=== PATIENT | female | born 1975 | race Caucasian/White ===

== ENCOUNTER → 2016-03-29 | Outpatient (CLI) | payer BC ==
[2016-03-29 16:54] LABS: MEAN CORPUSCULAR HEMOGLOBIN 27.1 pg (27.0-33.0); MEAN CORPUSCULAR HGB CONC 31.9 g/dl (32.0-36.5); MEAN CORPUSCULAR VOLUME 84.9 fl (80.0-96.0); RED CELL DISTRIBUTION WIDTH 12.8 % (11.5-14.5); WHITE BLOOD COUNT 7.6 K/mm3 (4.0-10.0)
[2016-03-29 17:13] LABS: ALBUMIN 3.7 GM/DL (3.2-5.2); ALBUMIN/GLOBULIN RATIO 1.16 (1.00-1.93); ALKALINE PHOSPHATASE 108 U/L (45-117); ALT/SGPT 47 U/L (12-78); ANION GAP 7 MEQ/L (8-16); AST/SGOT 33 U/L (15-37); BILIRUBIN,TOTAL 0.2 MG/DL (0.2-1.0); BLOOD UREA NITROGEN 11 MG/DL (7-18); CALCIUM LEVEL 8.6 MG/DL (8.5-10.1); CARBON DIOXIDE LEVEL 28 MEQ/L (21-32); CHLORIDE LEVEL 105 MEQ/L (98-107); CHOLESTEROL LEVEL 164 MG/DL (<200); CREATININE FOR GFR 0.83 MG/DL (0.55-1.02); FREE T4 0.88 NG/DL (0.76-1.46); GLOMERULAR FILTRATION RATE > 60.0 (>58); GLUCOSE, FASTING 97 MG/DL (70-105); POTASSIUM SERUM 4.2 MEQ/L (3.5-5.1); SODIUM LEVEL 140 MEQ/L (136-145); TOTAL PROTEIN 6.9 GM/DL (6.4-8.2); TRIGLYCERIDES LEVEL 74 MG/DL (<150)
== END ==
LOC: M LRY 11:11
PROVIDERS: ATTEND Internal Medicine Cardiovascular Disease
DX: R00.1 Bradycardia, unspecified (principal); R94.31 Abnormal electrocardiogram [ECG] [EKG]

== ENCOUNTER → 2016-04-14 | Outpatient (CLI) | payer BC ==
--- NOTE | 2016-04-14 23:15 | ECWPNPC ---
PATIENT NAME: PERRI ROSARIO : 1975 GENDER: FEMALE VISIT DATE: 04/14/2016 DISCHARGE DATE: 04/14/16 1034 VISIT LOCKED DATE TIME: PHYSICIAN: LINDSEY BROOKS RESOURCE: LINDSEY BROOKS REASON FOR APPOINTMENT 1. NECK HISTORY OF PRESENT ILLNESS HISTORY OF PRESENT ILLNESS: HERE FOR EVALUATION OF CHRONIC NECK AND RIGHT ARM PAIN.LAST VISIT WAS LISA 09/2015.REPORTS 2WK SIGNIFICANT IMPROVEMENT IN PAIN THEN PAIN RETURNED TO BASELINE.RATING PAIN VAS 7/10.DESCRIBES PAIN CONSTANT ACHING AND SORE.PAIN AGGEVATED BY USE OF RIGHT ARM.SOME IMPROVEMENT WITH HEAT AND RELAXATION.TRAMADOL IS INEFFECTIVE.SLEEP IS POOR DUE TO PAIN. PAIN THE PATIENT DESCRIBES THE PAIN... FALL RISK SCREENING: SCREENING :NO FALLS IN THE PAST YEAR CURRENT MEDICATIONS TAKING METHOCARBAMOL 750 MG TABLET 1 TABLET ORALLY EVERY 4 HRS, NOTES: 10/03/15 1000 TAKING ZYRTEC ALLERGY 10 MG TABLET 1 TABLET ORALLY ONCE A DAY TAKING SUDAFED 24 HOUR NON-DROWSY 240 MG TABLET EXTENDED RELEASE 24 HOUR 1 TABLET NEEDED ORALLY ONCE A DAY TAKING FLUTICASONE PROPIONATE 50 MCG/ACT SUSPENSION 1 SPRAY IN EACH NOSTRIL NASALLY BID, NOTES: MONTHS AGO TAKING ETODOLAC 300 MG CAPSULE 1 CAPSULE ORALLY TWICE A DAY TAKING NEURONTIN 600 MG TABLET 1 TABLET ORALLY TID AT MORNING AND NIGHT, NOTES: 10/03/15 1000 TAKING HYDROXYZINE HCL 50 MG TABLET 1 TABLET NEEDED ORALLY TID PRN, NOTES: 10/01/15 TAKING METOPROLOL SUCCINATE ER 25 MG TABLET EXTENDED RELEASE 24 HOUR 1 TABLET ORALLY BID NOT-TAKING DIFLUCAN 150 MG TABLET 1 TABLET ORALLY TAKE ONE TABLET NOW; REPEAT IN 72 HOURS IF SYMPTOMS PERSIST NOT-TAKING TRAMADOL HCL 50 MG TABLET 1 TABLET NEEDED ORALLY EVERY 6 HRS (MDD 4) NOT-TAKING BACTRIM DS 800-160 MG TABLET 1 TABLET ORALLY TWICE A DAY MEDICATION LIST REVIEWED AND RECONCILED WITH THE PATIENT PAST MEDICAL HISTORY RIGHT ANKLE PAIN CERVICALGIA LEFT KNEE PAIN RADICULOPATHY OF ARM LOW BACK PAIN RADIATING TO RIGHT LEG OBESITY (BMI 30-39.9) GERD (GASTROESOPHAGEAL REFLUX DISEASE) VITAMIN D INSUFFICIENCY ALLERGIES AUGMENTIN: FACIAL SWELLING (PT STATES ALLERGIC ONLY TO THE BINDER ASPECT OF AUGMENTIN): ALLERGY SOCIAL HISTORY GENERAL: TOBACCO USE ARE YOU A:NONSMOKER LEARNING BARRIERS / SPECIAL NEEDS ORIENTED TO PLAN OF CARE: PATIENT, PAIN MANAGEMENT PATIENT, ORIENTED TO PLAN OF CARE: PATIENT, PAIN MANAGEMENT PATIENT. NEW PATIENT PAIN DIARY TODAY'S VISITNOTES FROM 0-10, WHAT LEVEL IS YOUR PAIN TODAY?0 PAIN CLINIC PFS, CLERGY, PUBLIC HEALTH REFERRALS PFS REFERRAL NEEDED?NO CLERGY REFERRAL NEEDED?NO PUBLIC HEALTH REFERRAL NEEDED?NO WAS THE PROVIDER NOTIFIED OF ANY PERTINENT INFO?NO PFS REFERRAL NEEDED?NO CLERGY REFERRAL NEEDED?NO PUBLIC HEALTH REFERRAL NEEDED?NO WAS THE PROVIDER NOTIFIED OF ANY PERTINENT INFO?NO REVIEW OF SYSTEMS CONSTITUTIONAL: ANY CHANGE IN YOUR MEDICAL CONDITION? NO . CHILLS NO . FEVER NO . INFECTION: DO YOU HAVE NEW INFECTIONS? NO . DO YOU HAVE HISTORY OF MRSA? NO . MUSCULOSKELETAL: ANY NEW PATTERNS OF PAIN OR NUMBNESS? NO . GASTROENTEROLOGY: ANY NEW CHANGE IN BOWEL CONTROL? NO . GENITOURINARY: ANY NEW CHANGE IN BLADDER CONTROL? NO . IS THERE A CHANCE YOU COULD BE ? NO . HEMATOLOGY/LYMPH: DO YOU TAKE ANY BLOOD THINNERS? (FOR EXAMPLE- COUMADIN, PLAVIX, AGGRENOX, PLATEL, PRADAXA, OR XARELTO) NO . WHEN WAS YOUR LAST DOSE? DATE: TIME: . NEUROLOGY: HAVE YOU FALLEN IN THE PAST 6 MONTHS? NO . ANY NEW EXTREMITY NUMBNESS OR WEAKNESS? NO . CARDIOLOGY: DO YOU HAVE A PACEMAKER OR DEFIBRILLATOR? NO . RESPIRATORY: HAVE YOU BEEN SICK IN THE PAST WEEK? NO . FEVER NO . FLU LIKE SYMPTOMS? NO . COUGH NO . INTEGUMENTARY: DO YOU HAVE ANY RASHES OR OPEN SORES? NO . ALLERGIC/IMMUNO: ARE YOU ALLERGIC TO SHELLFISH OR IV DYE? NO . ANY NEW ALLERGIES? NO . PSYCHIATRIC: DO YOU HAVE THOUGHTS OF HURTING YOURSELF OR SOMEONE ELSE? NO . ARE YOU ABUSED, NEGLECTED, OR IN AN UNSAFE ENVIRONMENT? NO . ENDOCRINOLOGY: ARE YOU DIABETIC? NO . OTHER: DO YOU NEED ANY PRESCRIPTIONS? NO . IF YES, PLEASE LIST: ____ . ANY NEW PROBLEMS WITH YOUR MEDICATIONS? NO . WHEN DID YOU LAST EAT? ____ . WHEN DID YOU LAST DRINK? ____ . WHAT DID YOU LAST DRINK? ____ . NAME OF PERSON DRIVING YOU HOME? ____ . DO YOU HAVE ANY OTHER QUESTIONS OR CONCERNS NO . REVIEWED BY: PROVIDER: LINDSEY BERKOWITZ . VITAL SIGNS WT 256 LBS, HT 64.5 IN, BMI 43.26 INDEX, BP 155/95 L ARM, REPEAT BP 167/94 R ARM, HR 94 /MIN, RR 16 /MIN, TEMP 98.6 F, OXYGEN SAT % 98, NA INITIALS TL 1015ELEVATED BP, DATA MANAGEMENT ANALYST L.B. AWARE, PT STATES HER PRIMARY CARE DR IS AWARE WELL- TL. EXAMINATION GENERAL EXAMINATION: HEENT:HEAD:, NORMOCEPHALIC, EYES:, EYES NORMAL, NOSE:, NOSE CLEAR, THROAT: NORMAL. LUNGS:LUNG SOUNDS ARE CLEAR. HEART:HEART RATE REGULAR. ABDOMEN:SOFT AND NOT TENDER, NON-DISTENDED. MUSCULOSKELETAL:*. CERVICALPOSITIVE FOR PAIN WITH PALPATION OF CERVICAL SPINE. POSITIVE FOR PAIN WITH PALPATION OF CERVICAL PARASPINALS. POSITIVE FOR PAIN WITH PALPATION OF TRAPEZIUS BILAT. SKIN:NORMAL, NO RASH. NEUROLOGIC EXAM:ALERT AND ORIENTED X 3, DTRS 1-2+ IN ALL 4 EXTREMITIES, DENIES UPPER EXTREMETIES SENSORY LOSS, DENIES LOWER EXTREMETIES SENSORY LOSS. DIAGNOSTIC:[id number] REVIEWED NCS UPPER EXT. DONE 06-21-15-REVIEWED. ASSESSMENTS CERVICAL DISC DISORDER - M50.90 (PRIMARY) CERVICAL RADICULAR PAIN - M54.12 TREATMENT CERVICAL DISC DISORDER START NORCO TABLET, 5-325 MG, 1, ORALLY, EVERY 6 HRS PRN MDD4, 30 DAY(S), 45, REFILLS 0 CERVICAL EPIDURAL RIGHT PROCEDURE CODES FA211 ESTABILISHED PATIENT [facility] CHARGE DISPOSITION & COMMUNICATION FOLLOW UP 2WK POST (REASON: C5/6-C6/7 LISA) ELECTRONICALLY SIGNED BY WOO FINCH ON 04/14/2016 AT 11:02 AM EST DISCLAIMER : THIS IS A VISIT SUMMARY EXTRACTED FROM THE [employer] CHART. IT IS NOT A COPY OF THE [employer] PROGRESS NOTE. MTDD
== END ==
LOC: M PAIN 09:40
PROVIDERS: ATTEND Nurse Practitioner Family
DX: Z09 Encounter for follow-up examination after completed treatment for conditions other than malignant neoplasm (principal); G89.29 Other chronic pain; M50.90 Cervical disc disorder, unspecified, unspecified cervical region; M54.12 Radiculopathy, cervical region; K21.9 Gastro-esophageal reflux disease without esophagitis; E55.9 Vitamin D deficiency, unspecified; E66.9 Obesity, unspecified; Z68.41 Body mass index [BMI] 40.0-44.9, adult; Z88.1 Allergy status to other antibiotic agents; Z79.899 Other long term (current) drug therapy

== ENCOUNTER → 2016-06-01 | Outpatient (CLI) | payer BC ==
--- NOTE | 2016-06-02 00:34 | ECWPNPC ---
PATIENT NAME: PERRI ROSARIO : 1975 GENDER: FEMALE VISIT DATE: 06/01/2016 DISCHARGE DATE: 06/01/16 0952 VISIT LOCKED DATE TIME: PHYSICIAN: LINDSEY BROOKS RESOURCE: LINDSEY BROOKS REASON FOR APPOINTMENT 1. POST LISA HISTORY OF PRESENT ILLNESS HISTORY OF PRESENT ILLNESS: HERE FOR EVALUATION OF CHRONIC NECK AND RIGHT ARM PAIN.LAST VISIT WAS LISA 09/2015.REPORTS 2WK SIGNIFICANT IMPROVEMENT IN PAIN THEN PAIN RETURNED TO BASELINE.RATING PAIN VAS 7/10.DESCRIBES PAIN CONSTANT ACHING AND SORE.PAIN AGGEVATED BY USE OF RIGHT ARM.SOME IMPROVEMENT WITH HEAT AND RELAXATION.STARTED HYDROCODONE 5/325 AT LAST VISIT AND THIS HAS BEEN HELPFUL.SHE IS TAKING ONE TAB AT HS.MISSED LISA APT. DUE TO NERVES.FEELS SHE IS HAVING MORE RADIATION INTO RIGHT SKULL/NECK LATELY. PAIN THE PATIENT DESCRIBES THE PAIN... THE PATIENT DESCRIBES THE PAIN... FALL RISK SCREENING: SCREENING :NO FALLS IN THE PAST YEAR CURRENT MEDICATIONS TAKING METHOCARBAMOL 750 MG TABLET 1 TABLET ORALLY EVERY 4 HRS PRN TAKING ZYRTEC ALLERGY 10 MG TABLET 1 TABLET ORALLY ONCE A DAY TAKING SUDAFED 24 HOUR 240 MG TABLET EXTENDED RELEASE 24 HOUR 1 TABLET NEEDED ORALLY ONCE A DAY TAKING FLUTICASONE PROPIONATE 50 MCG/ACT SUSPENSION 1 SPRAY IN EACH NOSTRIL NASALLY BID PRN TAKING NEURONTIN 600 MG TABLET 1 TABLET ORALLY TID AT MORNING AND NIGHT TAKING HYDROXYZINE HCL 50 MG TABLET 1 TABLET NEEDED ORALLY TID PRN TAKING METOPROLOL SUCCINATE ER 25 MG TABLET EXTENDED RELEASE 24 HOUR 1 TABLET ORALLY BID TAKING NORCO 5-325 MG TABLET 1 ORALLY EVERY 6 HRS PRN MDD4 NOT-TAKING ETODOLAC 300 MG CAPSULE 1 CAPSULE ORALLY TWICE A DAY NOT-TAKING DIFLUCAN 150 MG TABLET 1 TABLET ORALLY TAKE ONE TABLET NOW; REPEAT IN 72 HOURS IF SYMPTOMS PERSIST NOT-TAKING TRAMADOL HCL 50 MG TABLET 1 TABLET NEEDED ORALLY EVERY 6 HRS (MDD 4) NOT-TAKING BACTRIM DS 800-160 MG TABLET 1 TABLET ORALLY TWICE A DAY MEDICATION LIST REVIEWED AND RECONCILED WITH THE PATIENT PAST MEDICAL HISTORY RIGHT ANKLE PAIN CERVICALGIA LEFT KNEE PAIN RADICULOPATHY OF ARM LOW BACK PAIN RADIATING TO RIGHT LEG OBESITY (BMI 30-39.9) GERD (GASTROESOPHAGEAL REFLUX DISEASE) VITAMIN D INSUFFICIENCY ALLERGIES AUGMENTIN: FACIAL SWELLING (PT STATES ALLERGIC ONLY TO THE BINDER ASPECT OF AUGMENTIN): ALLERGY SOCIAL HISTORY GENERAL: PAIN CLINIC PFS, CLERGY, PUBLIC HEALTH REFERRALS CLERGY REFERRAL NEEDED?NO WAS THE PROVIDER NOTIFIED OF ANY PERTINENT INFO?NO PFS REFERRAL NEEDED?NO PUBLIC HEALTH REFERRAL NEEDED?NO PATIENT: ____. REVIEW OF SYSTEMS CONSTITUTIONAL: ANY CHANGE IN YOUR MEDICAL CONDITION? NO . CHILLS NO . FEVER NO . INFECTION: DO YOU HAVE NEW INFECTIONS? NO . DO YOU HAVE HISTORY OF MRSA? NO . MUSCULOSKELETAL: ANY NEW PATTERNS OF PAIN OR NUMBNESS? YES, SHOOKING PAIN UP NECK INTO HEAD--OFF AND ON INCREASING IN FREQUENCY OVER THE PAST 3 WEEKS . GASTROENTEROLOGY: ANY NEW CHANGE IN BOWEL CONTROL? NO . GENITOURINARY: ANY NEW CHANGE IN BLADDER CONTROL? NO . IS THERE A CHANCE YOU COULD BE ? NO . HEMATOLOGY/LYMPH: DO YOU TAKE ANY BLOOD THINNERS? (FOR EXAMPLE- COUMADIN, PLAVIX, AGGRENOX, PLATEL, PRADAXA, OR XARELTO) NO . WHEN WAS YOUR LAST DOSE? DATE: TIME: . NEUROLOGY: HAVE YOU FALLEN IN THE PAST 6 MONTHS? NO . ANY NEW EXTREMITY NUMBNESS OR WEAKNESS? NO . CARDIOLOGY: DO YOU HAVE A PACEMAKER OR DEFIBRILLATOR? NO . RESPIRATORY: HAVE YOU BEEN SICK IN THE PAST WEEK? NO . FEVER NO . FLU LIKE SYMPTOMS? NO . COUGH NO . INTEGUMENTARY: DO YOU HAVE ANY RASHES OR OPEN SORES? NO . ALLERGIC/IMMUNO: ARE YOU ALLERGIC TO SHELLFISH OR IV DYE? NO . ANY NEW ALLERGIES? NO . PSYCHIATRIC: DO YOU HAVE THOUGHTS OF HURTING YOURSELF OR SOMEONE ELSE? NO . ARE YOU ABUSED, NEGLECTED, OR IN AN UNSAFE ENVIRONMENT? NO . ENDOCRINOLOGY: ARE YOU DIABETIC? NO . OTHER: DO YOU NEED ANY PRESCRIPTIONS? NO . IF YES, PLEASE LIST: ____ . ANY NEW PROBLEMS WITH YOUR MEDICATIONS? NO . WHEN DID YOU LAST EAT? ____ . WHEN DID YOU LAST DRINK? ____ . WHAT DID YOU LAST DRINK? ____ . NAME OF PERSON DRIVING YOU HOME? ____ . DO YOU HAVE ANY OTHER QUESTIONS OR CONCERNS NO . REVIEWED BY: PROVIDER: LINDSEY BERKOWITZ . VITAL SIGNS WT 257.4 LBS, HT 64.5 IN, BMI 43.50 INDEX, BP 134/90 MM HG, HR 109 /MIN, RR 16 /MIN, TEMP 98.9 F, OXYGEN SAT % 100, NA INITIALS AW 0851, REVIEWED BY: AD. EXAMINATION GENERAL EXAMINATION: HEENT:HEAD:, NORMOCEPHALIC, EYES:, EYES NORMAL, NOSE:, NOSE CLEAR, THROAT: NORMAL. LUNGS:LUNG SOUNDS ARE CLEAR. HEART:HEART RATE REGULAR. ABDOMEN:SOFT AND NOT TENDER, NON-DISTENDED. MUSCULOSKELETAL:*. CERVICALPOSITIVE FOR PAIN WITH PALPATION OF CERVICAL SPINE. POSITIVE FOR PAIN WITH PALPATION OF CERVICAL PARASPINALS. POSITIVE FOR PAIN WITH PALPATION OF TRAPEZIUS BILAT. SKIN:NORMAL, NO RASH. NEUROLOGIC EXAM:ALERT AND ORIENTED X 3, DTRS 1-2+ IN ALL 4 EXTREMITIES, DENIES UPPER EXTREMETIES SENSORY LOSS, DENIES LOWER EXTREMETIES SENSORY LOSS. DIAGNOSTIC:[id number] REVIEWED NCS UPPER EXT. DONE 06-21-15-REVIEWED. ASSESSMENTS CERVICAL DISC DISORDER - M50.90 (PRIMARY) CERVICAL RADICULAR PAIN - M54.12 TREATMENT CERVICAL DISC DISORDER REFILL NORCO TABLET, 5-325 MG, 1, ORALLY, EVERY 6 HRS PRN MDD4, 30 DAY(S), 45, REFILLS 0 START VALIUM TABLET, 10 MG, 1 TABLET NEEDED, ORALLY, 1 TAB 1/2 HR PRE ARRIVAL MDD1, 1 DOSE(S), 1, REFILLS 0 CERVICAL EPIDURAL LINDSEY GERMAIN 06/01/2016 9:31:03 AM > C4/5 LISA NOTES: OPTION FOR EPIDURAL INJECTIONS WERE DISCUSSED WITH THE PATIENT. FDA CONCERNS AND WARNING WERE REVIEWED INCLUDING THE RISK OF BLEEDING, RISK OF INFECTION, RISK OF INCREASED PAIN OR NEURALGIA, AND RISK OF PARALYSIS. PATIENT'S QUESTIONS WERE ANSWERED AND HE/SHE WISHES TO MOVE FORWARD WITH EPIDURAL INJECTION. [facility] REASON:C4/5 LARGE CENTRAL DISC HERNIATION W HT ARM RADICULOPATHY PREVENTIVE MEDICINE PAIN CLINIC TEACHING: MEDICATIONS PT DECLINED PRINTED INFORMATION ON VALIUM STSTING SHE WILL GET IT FROM THE PHARMACY. MEDICATION REVIEWED WITH PT AND SHE VERBALIZED UNDERSTANDING AD. PROCEDURE TEACHING PT. DECLINED PRINTED INFROMATION IN [place] STATING SHE HAS HAD IT BEFORE AND IS FAMILIAR WITH IT. PRE-PROCEDURE INSTRUCTIONS REVIEWED WITH PATIENT AND SHE VERBALIZED UNDERSTANDING. AD. PROCEDURE CODES FA211 ESTABILISHED PATIENT [facility] CHARGE DISPOSITION & COMMUNICATION FOLLOW UP 2WK POST (REASON: C4/5 LISA) ELECTRONICALLY SIGNED BY WOO FINCH ON 06/01/2016 AT 03:19 PM EDT DISCLAIMER : THIS IS A VISIT SUMMARY EXTRACTED FROM THE [employer] CHART. IT IS NOT A COPY OF THE [employer] PROGRESS NOTE. JUAN
== END ==
LOC: M PAIN 08:40
PROVIDERS: ATTEND Nurse Practitioner Family
DX: G89.29 Other chronic pain (principal); M50.121 Cervical disc disorder at C4-C5 level with radiculopathy; E66.9 Obesity, unspecified; K21.9 Gastro-esophageal reflux disease without esophagitis; E55.9 Vitamin D deficiency, unspecified; Z79.891 Long term (current) use of opiate analgesic; Z79.899 Other long term (current) drug therapy; Z88.8 Allergy status to other drugs, medicaments and biological substances; Z68.41 Body mass index [BMI] 40.0-44.9, adult

== ENCOUNTER → 2016-06-15 | Outpatient (CLI) | payer BC ==
[~2016-06-15] MED LIST: ISOVUE-M 300 61% 15ML VIAL (Q9967) As Ordered ONE; LIDOCAINE 1% SDV INJ 30 ML VIAL As Ordered ONE; methylPREDNISolone SUSP 40 MG/ML (DEPO-medrol) VIAL (J1030) As Ordered ONE
--- NOTE | 2016-06-15 18:20 | REP ---
FLUOROSCOPIC GUIDED SPINAL INJECTION: The films were reviewed with Dr. Nunez. The patient has a history of chronic neck and right arm pain. The portable C-ARM was provided in the OR by Dr. Story for fluoroscopic guidance. 2 intraoperative fluoroscopic spot films were obtained for needle placement verification for cervical epidural injection. The films are on the PACS system and are available for review. 15 seconds of fluoroscopic time was utilized for this procedure. Reviewed by CORNELL Reyes 06/16/2016 08:29 AEdited and Signed by Buddy Nunez MD 06/16/2016 05:08 P
--- NOTE | 2016-06-20 01:18 | ECWPNPC ---
PATIENT NAME: PERRI ROSARIO : 1975 GENDER: FEMALE VISIT DATE: 06/15/2016 DISCHARGE DATE: 06/15/16 1017 VISIT LOCKED DATE TIME: PHYSICIAN: JACKI BAUM RESOURCE: JACKI BAUM REASON FOR APPOINTMENT 1. LISA HISTORY OF PRESENT ILLNESS HISTORY OF PRESENT ILLNESS: PAIN THE PATIENT DESCRIBES THE PAIN... FALL RISK SCREENING: SCREENING :NO FALLS IN THE PAST YEAR CURRENT MEDICATIONS TAKING METHOCARBAMOL 750 MG TABLET 1 TABLET ORALLY EVERY 4 HRS PRN, NOTES: 06/14 11PM TAKING ZYRTEC ALLERGY 10 MG TABLET 1 TABLET ORALLY ONCE A DAY, NOTES: 3 DAYS TAKING SUDAFED 24 HOUR 240 MG TABLET EXTENDED RELEASE 24 HOUR 1 TABLET NEEDED ORALLY ONCE A DAY, NOTES: 1 WEEK TAKING FLUTICASONE PROPIONATE 50 MCG/ACT SUSPENSION 1 SPRAY IN EACH NOSTRIL NASALLY BID PRN, NOTES: 1 WEEK TAKING NEURONTIN 600 MG TABLET 1 TABLET ORALLY TID AT MORNING AND NIGHT, NOTES: 06/15 8AM TAKING HYDROXYZINE HCL 50 MG TABLET 1 TABLET NEEDED ORALLY TID PRN, NOTES: 2 DAYS AGO TAKING METOPROLOL SUCCINATE ER 25 MG TABLET EXTENDED RELEASE 24 HOUR 1 TABLET ORALLY BID, NOTES: 06/15 2AM TAKING NORCO 5-325 MG TABLET 1 ORALLY EVERY 6 HRS PRN MDD4, NOTES: 06/15 8AM TAKING VALIUM 10 MG TABLET 1 TABLET NEEDED ORALLY 1 TAB 1/2 HR PRE ARRIVAL MDD1, NOTES: 06/15 8AM NOT-TAKING ETODOLAC 300 MG CAPSULE 1 CAPSULE ORALLY TWICE A DAY NOT-TAKING DIFLUCAN 150 MG TABLET 1 TABLET ORALLY TAKE ONE TABLET NOW; REPEAT IN 72 HOURS IF SYMPTOMS PERSIST NOT-TAKING TRAMADOL HCL 50 MG TABLET 1 TABLET NEEDED ORALLY EVERY 6 HRS (MDD 4) NOT-TAKING BACTRIM DS 800-160 MG TABLET 1 TABLET ORALLY TWICE A DAY MEDICATION LIST REVIEWED AND RECONCILED WITH THE PATIENT PAST MEDICAL HISTORY RIGHT ANKLE PAIN CERVICALGIA LEFT KNEE PAIN RADICULOPATHY OF ARM LOW BACK PAIN RADIATING TO RIGHT LEG OBESITY (BMI 30-39.9) GERD (GASTROESOPHAGEAL REFLUX DISEASE) VITAMIN D INSUFFICIENCY ALLERGIES AUGMENTIN: FACIAL SWELLING (PT STATES ALLERGIC ONLY TO THE BINDER ASPECT OF AUGMENTIN): ALLERGY REVIEW OF SYSTEMS CONSTITUTIONAL: ANY CHANGE IN YOUR MEDICAL CONDITION? NO . CHILLS NO . FEVER NO . INFECTION: DO YOU HAVE NEW INFECTIONS? NO . DO YOU HAVE HISTORY OF MRSA? NO . MUSCULOSKELETAL: ANY NEW PATTERNS OF PAIN OR NUMBNESS? NO . GASTROENTEROLOGY: ANY NEW CHANGE IN BOWEL CONTROL? NO . GENITOURINARY: ANY NEW CHANGE IN BLADDER CONTROL? NO . IS THERE A CHANCE YOU COULD BE ? NO . HEMATOLOGY/LYMPH: DO YOU TAKE ANY BLOOD THINNERS? (FOR EXAMPLE- COUMADIN, PLAVIX, AGGRENOX, PLATEL, PRADAXA, OR XARELTO) NO . WHEN WAS YOUR LAST DOSE? DATE: TIME: . NEUROLOGY: HAVE YOU FALLEN IN THE PAST 6 MONTHS? NO . ANY NEW EXTREMITY NUMBNESS OR WEAKNESS? NO . CARDIOLOGY: DO YOU HAVE A PACEMAKER OR DEFIBRILLATOR? NO . RESPIRATORY: HAVE YOU BEEN SICK IN THE PAST WEEK? NO . FEVER NO . FLU LIKE SYMPTOMS? NO . COUGH NO . INTEGUMENTARY: DO YOU HAVE ANY RASHES OR OPEN SORES? NO . ALLERGIC/IMMUNO: ARE YOU ALLERGIC TO SHELLFISH OR IV DYE? NO . ANY NEW ALLERGIES? NO . PSYCHIATRIC: DO YOU HAVE THOUGHTS OF HURTING YOURSELF OR SOMEONE ELSE? NO . ARE YOU ABUSED, NEGLECTED, OR IN AN UNSAFE ENVIRONMENT? NO . ENDOCRINOLOGY: ARE YOU DIABETIC? NO . OTHER: DO YOU NEED ANY PRESCRIPTIONS? NO . IF YES, PLEASE LIST: ____ . ANY NEW PROBLEMS WITH YOUR MEDICATIONS? NO . WHEN DID YOU LAST EAT? 06/14 11PM . WHEN DID YOU LAST DRINK? 06/14 11PM . WHAT DID YOU LAST DRINK? WATER . NAME OF PERSON DRIVING YOU HOME? KILO ROSARIO . DO YOU HAVE ANY OTHER QUESTIONS OR CONCERNS NO . REVIEWED BY: PROVIDER: . VITAL SIGNS WT 257.4 LBS, HT 64.5 IN, BMI 43.50 INDEX, BP 129/82 MM HG, HR 82 /MIN, RR 16 /MIN, TEMP 98.6 F, OXYGEN SAT % 98%, SAFE IN ENV? (Y/N) Y, NA INITIALS WI 09:03, REVIEWED BY: JAILENE. 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 JACKI BAUM TEMPORARY HELP AGENCY REFERRAL CLERK NONE ANESTHESIA LOCAL PRE PROCEDURE NOTE THE PATIENT HAS A HISTORY OF CHRONIC CERVICAL PAIN. I EVALUATE THE PATIENT AND REVIEWED THE CHART. I WENT OVER THE RISKS, ALTERNATIVES, AND BENEFITS ASSOCIATED WITH THIS PROCEDURE. THE PATIENT WOULD LIKE TO PROCEED AND GIVE CONSENT TO PERFORMED THE PROCEDURE. THE PATIENT DENIES UNEXPLAINABLE WEIGHT LOSS, FEVER, CHILLS, OR NEW CHANGES IN URINARY OR BOWEL CONTROL DESCRIPTION OF PROCEDURE THE PATIENT WAS BROUGHT TO THE PROCEDURE ROOM AND PLACED IN THE PRONE POSITION. THE CERVICOTHORACIC AREA WAS CLEANED WITH BETADINE SOLUTION AND DRAPED ASEPTICALLY. THE PROCEDURE WAS DONE UNDER STERILE CONDITIONS. I CHECKED LATERALITY AND THE LEVEL WHERE THE PROCEDURE WAS GOING TO BE PERFORMED WITH THE PATIENT AND THE SUPPORTING STAFF AT THE MOMENT OF THE TIME OUT IN THE PROCEDURE ROOM. UNDER FLUOROSCOPIC GUIDANCE, THE TARGET WAS SELECTED AT THE INTERLAMINAR LEVEL OF C7-T1. LIDOCAINE WAS USED TO NUMB THE SKIN AND THE SUBCUTANEOUS TISSUE BELOW IT. EPIDURAL TUOHY NEEDLE 17-GAUGE WAS ADVANCED UNDER FLUOROSCOPIC GUIDANCE AND FOLLOWING PATIENT FEEDBACK UNTIL THE EPIDURAL SPACE WAS REACHED 6 CM DEEP INTO THE SKIN BY THE LOSS OF RESISTANCE TECHNIQUE. ISOVUE M DYE 30%, 0.25 ML, WAS INJECTED SHOWING ADEQUATE SPREAD OF THE DYE. THEN, A SOLUTION OF 3 ML OF NORMAL SALINE WITH DEPO-MEDROL 60 MG WAS INJECTED SLOWLY FOLLOWING PATIENT FEEDBACK. THERE WAS NO EVIDENCE OF BLOOD, PARESTHESIA OR CEREBROSPINAL FLUID DURING THE PROCEDURE. THE PATIENT WAS SENT TO THE RECOVERY ROOM. THE PATIENT WAS MOVING THE EXTREMITIES AND DOING WELL. THERE WAS NO COMPLICATION DURING THE PROCEDURE. FLUOROSCOPY TIME WAS 15 SECONDS POST PROCEDURE NOTE THE PATIENT WILL BE SEEN IN A FOLLOW UP IN THE NEXT FEW WEEKS. INSTRUCTIONS WERE GIVEN, QUESTIONS WERE ANSWERED, AND THE PATIENT EXPRESSED UNDERSTANDING AND AGREES WITH THE PLAN. I, DUNG STUART, DOCUMENTED THE ABOVE INFORMATION ACTING A SCRIBE FOR DR. BAUM. I HAVE REVIEWED THE ABOVE DOCUMENT, WRITTEN BY DUNG STUART SCRIBSharlene AND I VERIFY THAT IT IS ACCURATE. DIAGNOSTIC IMAGING [facility] FLUORO GUIDE SPINE INJECTION (PAIN)[id number] PROCEDURE CODES 00142 CERVICAL/THORACIC W/ IMAGING 6045F RADXPS IN END [id number] PXD DISPOSITION & COMMUNICATION FOLLOW UP 3 WEEKS ELECTRONICALLY SIGNED BY JACKI BAUM MD ON 06/19/2016 AT 09:09 PM EDT DISCLAIMER : THIS IS A VISIT SUMMARY EXTRACTED FROM THE [employer] CHART. IT IS NOT A COPY OF THE [employer] PROGRESS NOTE. JUAN
== END ==
LOC: M PAIN 08:40
PROVIDERS: ATTEND Anesthesiology
DX: M50.13 Cervical disc disorder with radiculopathy, cervicothoracic region (principal); G89.29 Other chronic pain; Z79.891 Long term (current) use of opiate analgesic; Z79.899 Other long term (current) drug therapy; Z88.1 Allergy status to other antibiotic agents
CPT/HCPCS: 62321; J1030; Q9967

== ENCOUNTER → 2016-06-28 | Outpatient (CLI) | payer BC ==
--- NOTE | 2016-07-19 02:53 | ECWPNPC ---
PATIENT NAME: PERRI ROSARIO : 1975 GENDER: FEMALE VISIT DATE: 06/28/2016 DISCHARGE DATE: 06/28/16 0000 VISIT LOCKED DATE TIME: PHYSICIAN: LINDSEY BROOKS RESOURCE: LINDSEY BROOKS REASON FOR APPOINTMENT 1. POST LISA HISTORY OF PRESENT ILLNESS HISTORY OF PRESENT ILLNESS: HERE FOR POST PROCEDURE F/U.HAD LISA ON 06-15-16.REPORTING NO IMPROVEMENT IN PAIN.RATING PAIN VAS 7/10.PAIN IS DESCRIBED CONSTANT BURNING AND ACHING.PAIN RADIATES INTO RIGHT ARM.SHE HAS A LARGE DISC HERNIATION AT C4/5.SHE HAD TWO WEEKS IMPROVEMENT AFTER FIRST LISA AND NONE AFTER SECOND.SHE DOES NOT WISH TO PURSUE ANYMORE INTERVENTIONAL TRETMENT.SHE IS CONSIDERING TALKING TO A SURGEON. PAIN THE PATIENT DESCRIBES THE PAIN... FALL RISK SCREENING: SCREENING :NO FALLS IN THE PAST YEAR CURRENT MEDICATIONS TAKING METHOCARBAMOL 750 MG TABLET 1 TABLET ORALLY EVERY 4 HRS PRN, NOTES: 06/14 11PM TAKING ZYRTEC ALLERGY 10 MG TABLET 1 TABLET ORALLY ONCE A DAY, NOTES: 3 DAYS TAKING SUDAFED 24 HOUR 240 MG TABLET EXTENDED RELEASE 24 HOUR 1 TABLET NEEDED ORALLY ONCE A DAY, NOTES: 1 WEEK TAKING FLUTICASONE PROPIONATE 50 MCG/ACT SUSPENSION 1 SPRAY IN EACH NOSTRIL NASALLY BID PRN, NOTES: 1 WEEK TAKING NEURONTIN 600 MG TABLET 1 TABLET ORALLY TID AT MORNING AND NIGHT, NOTES: 06/15 8AM TAKING HYDROXYZINE HCL 50 MG TABLET 1 TABLET NEEDED ORALLY TID PRN, NOTES: 2 DAYS AGO TAKING METOPROLOL SUCCINATE ER 25 MG TABLET EXTENDED RELEASE 24 HOUR 1 TABLET ORALLY BID, NOTES: 06/15 2AM TAKING NORCO 5-325 MG TABLET 1 ORALLY EVERY 6 HRS PRN MDD4, NOTES: 06/15 8AM NOT-TAKING VALIUM 10 MG TABLET 1 TABLET NEEDED ORALLY 1 TAB 1/2 HR PRE ARRIVAL MDD1, NOTES: 06/15 8AM NOT-TAKING ETODOLAC 300 MG CAPSULE 1 CAPSULE ORALLY TWICE A DAY NOT-TAKING DIFLUCAN 150 MG TABLET 1 TABLET ORALLY TAKE ONE TABLET NOW; REPEAT IN 72 HOURS IF SYMPTOMS PERSIST NOT-TAKING TRAMADOL HCL 50 MG TABLET 1 TABLET NEEDED ORALLY EVERY 6 HRS (MDD 4) NOT-TAKING BACTRIM DS 800-160 MG TABLET 1 TABLET ORALLY TWICE A DAY MEDICATION LIST REVIEWED AND RECONCILED WITH THE PATIENT PAST MEDICAL HISTORY RIGHT ANKLE PAIN CERVICALGIA LEFT KNEE PAIN RADICULOPATHY OF ARM LOW BACK PAIN RADIATING TO RIGHT LEG OBESITY (BMI 30-39.9) GERD (GASTROESOPHAGEAL REFLUX DISEASE) VITAMIN D INSUFFICIENCY ALLERGIES AUGMENTIN: FACIAL SWELLING (PT STATES ALLERGIC ONLY TO THE BINDER ASPECT OF AUGMENTIN): ALLERGY SURGICAL HISTORY 2 C- SECTIONS REVIEW OF SYSTEMS CONSTITUTIONAL: ANY CHANGE IN YOUR MEDICAL CONDITION? NO . CHILLS NO . FEVER NO . INFECTION: DO YOU HAVE NEW INFECTIONS? NO . DO YOU HAVE HISTORY OF MRSA? NO . MUSCULOSKELETAL: ANY NEW PATTERNS OF PAIN OR NUMBNESS? YES. PT STATES LISA DONE HERE WITH US 06/15/16. PT STATES PRE PROCEDURE PAIN WAS ON RIGHT NECK RADIATING TO RIGHT ARM, PAIN WAS /. POST LISA PT STATES PAIN GREW TO BILAT NECK ARN ARM PAIN 08/21. PT STATES SHE HAD NO PAIN RELIEF FROM LISA AT ALL. . GASTROENTEROLOGY: ANY NEW CHANGE IN BOWEL CONTROL? NO . GENITOURINARY: ANY NEW CHANGE IN BLADDER CONTROL? NO . IS THERE A CHANCE YOU COULD BE ? NO . HEMATOLOGY/LYMPH: DO YOU TAKE ANY BLOOD THINNERS? (FOR EXAMPLE- COUMADIN, PLAVIX, AGGRENOX, PLATEL, PRADAXA, OR XARELTO) NO . WHEN WAS YOUR LAST DOSE? DATE: TIME: . NEUROLOGY: HAVE YOU FALLEN IN THE PAST 6 MONTHS? NO . ANY NEW EXTREMITY NUMBNESS OR WEAKNESS? NO . CARDIOLOGY: DO YOU HAVE A PACEMAKER OR DEFIBRILLATOR? NO . RESPIRATORY: HAVE YOU BEEN SICK IN THE PAST WEEK? NO . FEVER NO . FLU LIKE SYMPTOMS? NO . COUGH NO . INTEGUMENTARY: DO YOU HAVE ANY RASHES OR OPEN SORES? NO . ALLERGIC/IMMUNO: ARE YOU ALLERGIC TO SHELLFISH OR IV DYE? NO . ANY NEW ALLERGIES? NO . PSYCHIATRIC: DO YOU HAVE THOUGHTS OF HURTING YOURSELF OR SOMEONE ELSE? NO . ARE YOU ABUSED, NEGLECTED, OR IN AN UNSAFE ENVIRONMENT? NO . ENDOCRINOLOGY: ARE YOU DIABETIC? NO . OTHER: DO YOU NEED ANY PRESCRIPTIONS? YES, METHOCARBIMOL . IF YES, PLEASE LIST: ____ . ANY NEW PROBLEMS WITH YOUR MEDICATIONS? NO . WHEN DID YOU LAST EAT? ____ . WHEN DID YOU LAST DRINK? ____ . WHAT DID YOU LAST DRINK? ____ . NAME OF PERSON DRIVING YOU HOME? ____ . DO YOU HAVE ANY OTHER QUESTIONS OR CONCERNS NO . REVIEWED BY: PROVIDER: LINDSEY BERKOWITZ . VITAL SIGNS WT 255.0 LBS, HT 64.5 IN, BMI 43.09 INDEX, BP 140/90 MM HG, HR 102 /MIN, RR 18 /MIN, TEMP 98.1 F, OXYGEN SAT % 100%, SAFE IN ENV? (Y/N) Y, NA INITIALS TL 0939, REVIEWED BY: EM. EXAMINATION GENERAL EXAMINATION: HEENT:HEAD:, NORMOCEPHALIC, EYES:, EYES NORMAL, NOSE:, NOSE CLEAR, THROAT: NORMAL. LUNGS:LUNG SOUNDS ARE CLEAR. HEART:HEART RATE REGULAR. ABDOMEN:SOFT AND NOT TENDER, NON-DISTENDED. MUSCULOSKELETAL:*. CERVICALPOSITIVE FOR PAIN WITH PALPATION OF CERVICAL SPINE. POSITIVE FOR PAIN WITH PALPATION OF CERVICAL PARASPINALS. POSITIVE FOR PAIN WITH PALPATION OF TRAPEZIUS BILAT. SKIN:NORMAL, NO RASH. NEUROLOGIC EXAM:ALERT AND ORIENTED X 3, DTRS 1-2+ IN ALL 4 EXTREMITIES, DENIES UPPER EXTREMETIES SENSORY LOSS, DENIES LOWER EXTREMETIES SENSORY LOSS. DIAGNOSTIC:[id number] REVIEWED NCS UPPER EXT. DONE 06-21-15-REVIEWED. ASSESSMENTS CERVICAL DISC DISORDER - M50.90 (PRIMARY) CERVICAL RADICULAR PAIN - M54.12 PROCEDURE CODES FA211 ESTABILISHED PATIENT [facility] CHARGE DISPOSITION & COMMUNICATION FOLLOW UP NO F/U ELECTRONICALLY SIGNED BY WOO FINCH ON 07/18/2016 AT 05:04 PM EDT DISCLAIMER : THIS IS A VISIT SUMMARY EXTRACTED FROM THE [employer] CHART. IT IS NOT A COPY OF THE [employer] PROGRESS NOTE. MTDD
== END ==
LOC: M PAIN 09:20
PROVIDERS: ATTEND Nurse Practitioner Family
DX: M50.90 Cervical disc disorder, unspecified, unspecified cervical region (principal); M54.12 Radiculopathy, cervical region; Z79.891 Long term (current) use of opiate analgesic; Z79.899 Other long term (current) drug therapy; Z88.0 Allergy status to penicillin

== ENCOUNTER → 2016-07-26 | Outpatient (CLI) | payer BC ==
--- NOTE | 2016-07-26 19:30 | REP ---
LEFT SHOULDER, THREE VIEWS: There is no evidence of an acute fracture, dislocation or intrinsic bone disease. IMPRESSION: No fracture or dislocation. Signed by Buddy Nunez MD 07/26/2016 07:51 P
== END ==
LOC: M LRY 18:36
PROVIDERS: ATTEND Nurse Practitioner Family
DX: M25.512 Pain in left shoulder (principal)

== ENCOUNTER → 2017-04-13 | Outpatient (CLI) | payer BC | LOC: M LRY 08:31 | DX: R05 Cough (principal) | CPT/HCPCS: 71046 ==

== ENCOUNTER → 2017-04-13 | Outpatient (REF) | payer BC ==
[2017-04-13 11:40] LABS: BASO # 0.1 10^3/uL (0.0-0.2); BASO % 1.7 % (0.0-1.0); EOS # 0.6 10^3/uL (0.0-0.50); EOS % 10.5 % (0.0-3.0); HEMOGLOBIN 10.6 g/dl (12.0-16.0); IMMATURE GRANULOCYTE % 0.2 % (0-3.0); LYMPH # 2.4 10^3/uL (1.5-4.5); LYMPH % 39.4 % (24.0-44.0); MEAN CORPUSCULAR HEMOGLOBIN 26.1 pg (27.0-33.0); MEAN CORPUSCULAR HGB CONC 31.2 g/dl (32.0-36.5); MEAN CORPUSCULAR VOLUME 83.7 fl (80.0-96.0); MONO # 0.4 10^3/uL (0.0-0.8); NEUTROPHILS # 2.5 10^3/uL (1.8-7.7); NEUTROPHILS % 41.2 % (36.0-66.0); PLATELET COUNT, AUTOMATED 299 10^3/uL (150-450); RED BLOOD COUNT 4.06 10^6/uL (4.00-5.40); RED CELL DISTRIBUTION WIDTH 13.3 % (11.5-14.5)
[2017-04-13 12:05] LABS: C REACTIVE PROTEIN QUANTITATIV < 0.30 MG/DL (0.00-0.30); FERRITIN 4 NG/ML (8-252); IRON (FE) 62 UG/DL (50-170); PERCENT SATURATION 14.1 % (13.2-45.0); RHEUMATOID FACTOR QUANT < 10.0 IU/ML (0-15.0); TOTAL IRON BINDING CAPACITY 441 UG/DL (250-450)
[2017-04-13 12:12] LABS: VITAMIN B12 LEVEL 536 PG/ML (247-911)
[2017-04-13 12:32] LABS: ERYTHROCYTE SEDIMENTATION RATE 8 mm/hr (0-20)
[2017-04-15 00:07] LABS: ANTINUCLEAR ANTIBODIES DIRECT Negative (Negative); Lyme Disease IgG/IgM Antibodie <0.91 ISR (0.00-0.90); Lyme Disease IgM Ab Quantitati <0.80 index (0.00-0.79)
== END ==
LOC: M SFHCLERA 08:17
DX: M25.50 Pain in unspecified joint (principal); D64.9 Anemia, unspecified; R53.83 Other fatigue

== ENCOUNTER → 2018-04-09 | Outpatient (REF) | payer BC | LOC: M SFHCLERA 15:22 | PROVIDERS: ATTEND Physician Assistant | DX: J02.9 Acute pharyngitis, unspecified (principal) ==

== ENCOUNTER → 2018-07-17 | Outpatient (REF) | payer BC ==
[2018-07-17 23:15] LABS: CHLAMYDIA DNA AMPLIFICATION NEGATIVE (NEGATIVE); GC DNA AMPLIFICATION NEGATIVE (NEGATIVE)
== END ==
LOC: M SFHCLERA 19:01
PROVIDERS: ATTEND Physician Assistant
DX: R30.0 Dysuria (principal)

== ENCOUNTER → 2019-04-24 | Outpatient (CLI) | payer BC | LOC: M WHC 15:11 | PROVIDERS: ATTEND Family Medicine | DX: Z53.9 Procedure and treatment not carried out, unspecified reason (principal) ==

== ENCOUNTER → 2019-07-14 | Outpatient (REF) | payer BC ==
[2019-07-14 11:28] LABS: HEMATOCRIT 37.5 % (36.0-47.0); HEMOGLOBIN 11.9 g/dl (12.0-15.5); MEAN CORPUSCULAR HEMOGLOBIN 28.1 pg (27.0-33.0); MEAN CORPUSCULAR HGB CONC 31.7 g/dl (32.0-36.5); MEAN CORPUSCULAR VOLUME 88.4 fl (80.0-96.0); PLATELET COUNT, AUTOMATED 260 10^3/uL (150-450); RED BLOOD COUNT 4.24 10^6/uL (4.00-5.40); WHITE BLOOD COUNT 7.1 10^3/uL (4.0-10.0)
[2019-07-14 11:35] LABS: FERRITIN 8 NG/ML (8-252); IRON (FE) 68 UG/DL (50-170)
[2019-07-14 12:24] LABS: HEPATITIS A ANTIBODY IGM NEGATIVE (NEGATIVE); HEPATITIS B CORE ANTIBODY IGM NEGATIVE (NEGATIVE); HEPATITIS B SURFACE ANTIGEN NEGATIVE (NEGATIVE); HEPATITIS C VIRUS ABY INDEX 0.1 INDEX (<0.8); HIV 1&2 SCREEN CENTAUR NEGATIVE (NEGATIVE)
[2019-07-14 14:33] LABS: CHLAMYDIA DNA AMPLIFICATION NEGATIVE (NEGATIVE); GC DNA AMPLIFICATION NEGATIVE (NEGATIVE)
== END ==
LOC: M SFHCLERA 09:22
PROVIDERS: ATTEND Family Medicine
DX: E61.1 Iron deficiency (principal)

== ENCOUNTER → 2019-09-23 | Outpatient (REF) | payer BC ==
[~2019-09-23] MED LIST changes: +BUSP15TA47 PO; +FLUTISP INH; +GABA-1171 PO; +HYDR50TA70 PO; -ISOVUE-M 300 61% 15ML VIAL (Q9967) As Ordered ONE; -LIDOCAINE 1% SDV INJ 30 ML VIAL As Ordered ONE; +METO1TAB7 PO; +NORE1CHW3 PO; +ZOLP5TAB PO; -methylPREDNISolone SUSP 40 MG/ML (DEPO-medrol) VIAL (J1030) As Ordered ONE
[2019-11-02 13:31] LABS: CHLAMYDIA DNA AMPLIFICATION NEGATIVE (NEGATIVE); GC DNA AMPLIFICATION NEGATIVE (NEGATIVE)
== END ==
LOC: M SFHCLERA 11:23
PROVIDERS: ATTEND Family Medicine
DX: Z12.4 Encounter for screening for malignant neoplasm of cervix (principal)
CPT/HCPCS: 87624; 87661; G0123

== ENCOUNTER → 2019-10-10 | Outpatient (CLI) | payer BC | LOC: M LABSMTC 13:33 | PROVIDERS: ATTEND Anesthesiology | DX: Z11.59 Encounter for screening for other viral diseases (principal) ==

== ENCOUNTER 2019-10-15 08:12 | Day surgery (SDC) | payer BC ==
[~2019-10-15] VITALS: Ht 162.6 cm; Wt 90.7 kg
[2019-10-15] MEDS ORDERED: LR 1,000 ML IV ONE ×2 (08:30→10:15)
[2019-10-15] MEDS ORDERED: propofoL 200 MG/20 ML VIAL As Ordered ONE (09:03)
[2019-10-15] MEDS ORDERED: LIDOCAINE 2% 100MG/5ML SDV (FOR ANES.) As Ordered ONE (09:03)
[2019-10-15] MEDS ORDERED: ONDANSETRON 4MG/2ML VIAL As Ordered ONE (09:03)
[2019-10-15] MEDS ORDERED: ROCURONIUM BROMIDE 50 MG/5 ML VIAL As Ordered ONE (09:03)
[2019-10-15] MEDS ORDERED: MIDAZOLAM INJ 2MG/2ML VIAL (J2250 PER 1MG) As Ordered ONE (09:04)
[2019-10-15] MEDS ORDERED: SCOPOLAMINE 1MG TRANSDERMAL PATCH As Ordered ONE (09:04)
[2019-10-15] MEDS ORDERED: fentaNYL 100 MCG/2 ML INJECTION (J3010) As Ordered ONE ×2 (09:04→11:31)
[2019-10-15] MEDS ORDERED: dexameTHASONE 4 MG/ML 1ML VIAL (J1100 PER 1MG) As Ordered ONE (09:05)
[2019-10-15] MEDS ORDERED: SUGAMMADEX SODIUM 500 MG/5 ML VIAL (BRIDION) As Ordered ONE (09:05)
[2019-10-15] MEDS ORDERED: ACETAMINOPHEN 1000MG 100ML IV BTL (OFIRMEV) (J0131 PER 10MG) As Ordered ONE (09:05)
[2019-10-15] MEDS ORDERED: KETOROLAC 60MG 2ML VIAL As Ordered ONE (09:05)
[2019-10-15] MEDS ORDERED: SODIUM CHLORIDE 0.9% NASAL GEL 15GM (AYR) As Ordered ONE (09:38)
[2019-10-15] MEDS ORDERED: OXYMETAZOLINE 0.05% NASAL SPRAY (AFRIN) As Ordered ONE (09:39)
[2019-10-15] MEDS ORDERED: LIDOCAINE W/EPINEPHRINE 1% 20ML VIAL As Ordered ONE (09:39)
[2019-10-15] MEDS ORDERED: METHYLENE BLUE 0.5% (5MG/ML) 10 ML AMP (PROVAYBLUE) As Ordered ONE (09:39)
[2019-10-15] MEDS ORDERED: SCOPOLAMINE 1MG TRANSDERMAL PATCH TOP ONE (10:15)
[2019-10-15] MEDS ORDERED: ePHEDrine SULFATE 25 MG/5 ML(5MG/ML) SYRINGE As Ordered ONE (10:41)
[2019-10-15] MEDS ORDERED: oxyCODONE 5MG TAB As Ordered ONE (11:31)
[2019-10-15] MEDS ORDERED: ONDANSETRON 4MG/2ML VIAL IV PRN (11:45)
[2019-10-15] MEDS ORDERED: MEPERIDINE INJ 25 MG/ML VIAL (J2175) IV PRN (11:45)
[2019-10-15] MEDS ORDERED: fentaNYL 100 MCG/2 ML INJECTION (J3010) IV PRN (11:45)
[2019-10-15] MEDS ORDERED: LR 1,000 ML IV SCH (11:45)
[2019-10-15] MEDS ORDERED: oxyCODONE 5MG TAB PO PRN (11:45)
[2019-10-15] MEDS ORDERED: PERCOCET 5MG/325MG TAB PO PRN (12:45)
[2019-10-15] MEDS ORDERED: IBUPROFEN 800 MG TAB PO PRN (12:45)
[2019-10-15 12:50] VITALS: BP 144/84
== END 2019-10-15 13:00 | disposition home or self-care (01) ==
LOC: M SDC 08:12
PROVIDERS: ATTEND Specialist
DX: J34.2 Deviated nasal septum (principal); J31.0 Chronic rhinitis; G43.909 Migraine, unspecified, not intractable, without status migrainosus; I10 Essential (primary) hypertension; F41.9 Anxiety disorder, unspecified; Z79.899 Other long term (current) drug therapy; Z88.0 Allergy status to penicillin; Z88.1 Allergy status to other antibiotic agents
CPT/HCPCS: 30140; 30520; 81025; 88300; J0131; J1100; J1885; J2250; J2405; J3010; Q9968

== ENCOUNTER → 2020-03-04 | Outpatient (CLI) | payer BC ==
[2020-03-04 13:04] LABS: ALBUMIN 3.4 GM/DL (3.2-5.2); ALT/SGPT 34 U/L (12-78); BILIRUBIN,TOTAL 0.3 MG/DL (0.2-1.0); BLOOD UREA NITROGEN 15 MG/DL (7-18); CARBON DIOXIDE LEVEL 29 MEQ/L (21-32); CHLORIDE LEVEL 107 MEQ/L (98-107); CREATININE FOR GFR 1.01 MG/DL (0.55-1.30); FREE T4 0.96 NG/DL (0.76-1.46); GLOMERULAR FILTRATION RATE > 60.0 (>58); GLUCOSE, FASTING 95 MG/DL (70-100); POTASSIUM SERUM 3.9 MEQ/L (3.5-5.1); RHEUMATOID FACTOR QUANT < 10.0 IU/ML (<15.0); SODIUM LEVEL 141 MEQ/L (136-145); TOTAL PROTEIN 6.5 GM/DL (6.4-8.2)
--- NOTE | 2020-03-05 16:02 | REP ---
INDICATION: PAIN. Bilateral hand pain. COMPARISON: None. TECHNIQUE: 9 views, bilateral hand radiographs. FINDINGS: Multiple views of each hand demonstrate overall normal mineralization. No erosive changes are seen. Joint spaces are preserved. There is soft tissue swelling at the DIP linger of the right hand and to a lesser extent at the DIP and PIP joints of the index finger of the right hand. No soft tissue swelling is evident on the left. IMPRESSION: Soft tissue swelling at the index and long finger DIP region on the right. No evidence of erosive change. Normal mineralization. No acute bony abnormality.. <Electronically signed by Pankaj Mcgrath > 03/05/20 0848
[2020-03-06 00:08] LABS: ANA (HEP2) Negative (.); CYCLIC CITRULLINATED PEPTIDE 6 units (0-19); Lyme Disease IgG/IgM Antibodie <0.91 ISR (0.00-0.90); Lyme Disease IgM Ab Quantitati <0.80 index (0.00-0.79); SSA SJOGRENS A <0.2 AI (0.0-0.9); SSB SJOGRENS B <0.2 AI (0.0-0.9)
== END ==
LOC: M WUC 10:22
PROVIDERS: ATTEND Family Medicine
DX: M25.542 Pain in joints of left hand (principal); M25.541 Pain in joints of right hand

== ENCOUNTER → 2020-04-12 | Outpatient (CLI) | payer BC | LOC: M CARPUL 09:56 | PROVIDERS: ATTEND Family Medicine | DX: I77.89 Other specified disorders of arteries and arterioles (principal) ==